=== PATIENT | female | born 1980 | race African-American/Black ===

== ENCOUNTER 2017-12-13 12:25 | Observation (INO) | payer MEDICAID ==
[~2017-12-13] VITALS: Ht 170.2 cm; Wt 103.0 kg
[2017-12-14] MEDS ORDERED: PNV1TABL76 MT (21:23)
[2017-12-14] MEDS ORDERED: PNV1TABL76 PO (21:23)
== END 2017-12-13 14:45 | disposition home or self-care (01) ==
LOC: L&D 12:25
PROVIDERS: ADMIT Obstetrics & Gynecology Obstetrics; ATTEND Obstetrics & Gynecology Obstetrics
DX: O36.63X0 Maternal care for excessive fetal growth, third trimester, not applicable or unspecified (principal); Z3A.39 39 weeks gestation of pregnancy
CPT/HCPCS: 76805; 76818; G0378

== ENCOUNTER 2017-12-14 18:55 | Observation (INO) | payer MEDICAID ==
[2017-12-14] MEDS ORDERED: PNV1TABL76 MT (21:23)
[2017-12-14] MEDS ORDERED: PNV1TABL76 PO (21:23)
== END 2017-12-14 21:35 | disposition home or self-care (01) ==
LOC: L&D 18:55
PROVIDERS: ADMIT Obstetrics & Gynecology Obstetrics; ATTEND Obstetrics & Gynecology Obstetrics
DX: Z34.93 Encounter for supervision of normal pregnancy, unspecified, third trimester (principal); Z3A.39 39 weeks gestation of pregnancy
CPT/HCPCS: 76815; 76818; 99281; G0378

== ENCOUNTER 2017-12-20 10:35 | Inpatient (IN) | payer MEDICAID ==
[~2017-12-20] VITALS: Ht 170.2 cm; Wt 103.0 kg
[~2017-12-20 10:35] MED LIST: PNV1TABL76 MT; PNV1TABL76 PO
[2017-12-20] MEDS ORDERED: CHOL100046 PO (11:01)
[2017-12-20] MEDS ORDERED: METHYLERGONOVINE MALEATE 0.2 MG/ML IM PRN (11:15)
[2017-12-20] MEDS ORDERED: CARBOPROST TROMETHAMINE 250 MCG/ML AMPUL IM PRN (11:15)
[2017-12-20] MEDS ORDERED: DIPHENHYDRAMINE 50MG/ML VIAL IV PRN (11:15)
[2017-12-20] MEDS ORDERED: NALOXONE HCL 0.4 MG/ML 1ML VIAL IV PRN (11:15)
[2017-12-20] MEDS ORDERED: CITRIC ACID/SODIUM CITRATE SOLN 30ML UDC PO NR (11:15)
[2017-12-20] MEDS ORDERED: BUTORPHANOL TARTRATE 2 MG/ML VIAL IV PRN (11:15)
[2017-12-20] MEDS ORDERED: FENTANYL CITRATE/PF 50MCG/ML 2ML VIAL ONE (11:24)
[2017-12-20] MEDS ORDERED: MORPHINE SULFATE/PF 1MG/ML 10ML AMP ONE (11:25)
[2017-12-20] MEDS: LACTATED RINGERS 1,000 ML IV SCH ×2 (11:26→12:09)
[2017-12-20 11:34] LABS: BASOPHILS % 0.5 % (0.0-2.0); EOSINOPHILS % 0.7 % (0.0-5.0); HEMATOCRIT. 39.6 % (36.0-48.0); HEMOGLOBIN. 13.3 g/dL (12.0-16.0); LYMPHOCYTES % 22.7 % (20.0-50.0); MEAN CORPUSCULAR VOLUME 80.3 fL (81.0-99.0); MEAN PLATELET VOLUME 7.9 fl (7.4-10.4); MONOCYTES % 8.3 % (2.0-8.0); NEUTROPHILS % 67.8 % (40.0-76.0); PLATELET 247 x1000/uL (130-400); RED BLOOD CELL COUNT 4.93 mill/uL (4.2-5.4); RED CELL DISTRIBUTION WIDTH 14.1 % (11.6-14.6)
[2017-12-20 11:36] LABS: CLARITY URINE CLEAR (CLEAR); COLOR URINE YELLOW (YELLOW); KETONES URINE NEGATIVE (NEGATIVE); LEUKOCYTE ESTERASE URINE 2+ (NEGATIVE); NITRITE URINE NEGATIVE (NEGATIVE); OCCULT BLOOD URINE NEGATIVE (NEGATIVE); PROTEIN URINE NEGATIVE (NEGATIVE); SPECIFIC GRAVITY URINE 1.013 (1.005-1.030); UROBILINOGEN URINE 0.2 E.U./dL (0.2-1.0)
[2017-12-20 11:43] LABS: PROTHROMBIN TIME 10.5 sec (9.4-11.6)
[2017-12-20] MEDS ORDERED: CEFAZOLIN SODIUM 1000MG/VIAL ONE (12:17)
[2017-12-20] MEDS ORDERED: EPHEDRINE SULFATE 50MG/ML VIAL ONE (12:17)
[2017-12-20] MEDS ORDERED: PHENYLEPHRINE HCL 10 MG/ML 1ML (IV VIAL) IV ONE (12:17)
[2017-12-20] MEDS ORDERED: OXYTOCIN 10 UNITS/ML 1ML ONE (12:17)
[2017-12-20] MEDS ORDERED: DIPHENHYDRAMINE 50MG/ML VIAL ONE (12:17)
[2017-12-20] MEDS ORDERED: ONDANSETRON HCL 4MG/2ML VIAL ONE (12:17)
[2017-12-20] MEDS ORDERED: GLYCOPYRROLATE 0.2 MG/ML 2ML VIAL ONE (12:17)
[2017-12-20 12:36] LABS: *AMPHETAMINES SCREEN URINE NEGATIVE (NEGATIVE); *BARBITURATES SCREEN URINE NEGATIVE (NEGATIVE); *BENZODIAZEPINES SCREEN URINE NEGATIVE (NEGATIVE); *COCAINE SCREEN URINE NEGATIVE (NEGATIVE); CANNABINOID URINE SCREEN NEGATIVE (NEGATIVE); METHADONE URINE SCREEN NEGATIVE (NEGATIVE); OPIATES URINE SCREEN NEGATIVE (NEGATIVE); PHENCYCLIDINE URINE SCREEN NEGATIVE (NEGATIVE)
[2017-12-20] MEDS ORDERED: METOCLOPRAMIDE HCL 10MG/2ML VIAL ONE (12:57)
[2017-12-20 13:02] LABS: HEPATITIS B SURFACE ANTIGEN NEGATIVE
[2017-12-20 13:22] LABS: RUBELLA IGG > 500.0 IU/mL (4.99-10)
[2017-12-20] MEDS: DEXT 5%/LR + PITOCIN 20UNITS/L 1,000 ML IV SCH ×2 (15:25→22:31)
[2017-12-20] MEDS ORDERED: ACETAMINOPHEN WITH CODEINE 300/30MG TABLET PO PRN ×2 (15:30)
[2017-12-20] MEDS ORDERED: BISACODYL 10MG SUPP PR PRN (15:30)
[2017-12-20] MEDS ORDERED: LANOLIN OINT 0.25 GM TUBE TOP PRN (15:30)
[2017-12-20] MEDS: ONDANSETRON HCL 4MG/2ML VIAL IV PRN ×2 (15:48→20:16)
[2017-12-20 16:30] VITALS: BP 109/55
[2017-12-20 17:19] VITALS: BP 103/62
[2017-12-20 19:30] VITALS: BP 116/61
[2017-12-20 23:45] VITALS: BP 108/55
[2017-12-21 03:50] VITALS: BP 97/55
[2017-12-21] MEDS: KETOROLAC 30MG/ML VIAL IV PRN ×2 (05:38→11:05)
[2017-12-21 06:05] LABS: HEMATOCRIT 35.7 % (36.0-48.0); HEMOGLOBIN 11.9 g/dL (12.0-16.0)
[2017-12-21] MEDS: PRENATAL VIT/FE FUMARATE/FA TABLET PO SCH (07:57)
[2017-12-21] MEDS: FERROUS SULFATE 325MG TABLET PO SCH (07:58)
[2017-12-21 08:00] VITALS: BP 116/71
[2017-12-21 13:10] VITALS: BP 114/68
[2017-12-21] MEDS: PROMETHAZINE/DEXTROMETHORPHAN 6.25-15MG/5ML BOTTLE 120ML PO PRN (14:35)
[2017-12-21 16:50] VITALS: BP 114/71
[2017-12-21] MEDS: IBUPROFEN 400MG TABLET PO PRN ×2 (17:16→23:37)
[2017-12-21 20:00] VITALS: BP 109/68
[2017-12-22] VITALS (7 sets, daily range): BP systolic 108–123; BP diastolic 63–77
[2017-12-22] MEDS: FERROUS SULFATE 325MG TABLET PO SCH (07:56)
[2017-12-22] MEDS: PRENATAL VIT/FE FUMARATE/FA TABLET PO SCH (07:56)
[2017-12-22] MEDS: IBUPROFEN 400MG TABLET PO PRN ×3 (07:56→21:16)
[2017-12-22] MEDS: PROMETHAZINE/DEXTROMETHORPHAN 6.25-15MG/5ML BOTTLE 120ML PO PRN ×2 (08:17→21:19)
[2017-12-22] MEDS ORDERED: INFLUENZA VIRUS VACCINE 0.5ML SYR IM ONE (20:00)
[2017-12-22] MEDS ORDERED: TETANUS, DIPHTHERIA, PERTUSSIS VAC/PF 0.5ML (>7YR OLD) IM ONE (20:00)
[2017-12-23 04:15] VITALS: BP 113/69
[2017-12-23] MEDS: IBUPROFEN 400MG TABLET PO PRN ×2 (06:03→12:54)
[2017-12-23 07:47] VITALS: BP 112/78
[2017-12-23] MEDS: PRENATAL VIT/FE FUMARATE/FA TABLET PO SCH (07:59)
[2017-12-23] MEDS: FERROUS SULFATE 325MG TABLET PO SCH ×2 (07:59→12:54)
[2017-12-23] MEDS: PROMETHAZINE/DEXTROMETHORPHAN 6.25-15MG/5ML BOTTLE 120ML PO PRN ×2 (08:01→16:01)
== END 2017-12-23 16:24 | disposition home or self-care (01) | DRG 540 ==
LOC: OBSVTOIN 10:35 → L&D 10:35 → 7EST PP/OB 15:58
PROVIDERS: ADMIT Obstetrics & Gynecology Obstetrics; ATTEND Obstetrics & Gynecology Obstetrics
PROC: 10D00Z1 Extraction of Products of Conception, Low, Open Approach (ICD-10-PCS; principal; 2017-12-20 13:23)
DX: O34.219 Maternal care for unspecified type scar from previous cesarean delivery (principal); O48.0 Post-term pregnancy; Z37.0 Single live birth; O36.60X0 Maternal care for excessive fetal growth, unspecified trimester, not applicable or unspecified; O75.89 Other specified complications of labor and delivery; O77.0 Labor and delivery complicated by meconium in amniotic fluid; Z3A.40 40 weeks gestation of pregnancy
CPT/HCPCS: 36415; 80305; 81001; 85014; 85018; 85025; 85610; 85730; 86592; 86703; 86762; 86850; 86900; 87340; 88307; 90686; 90715; G0378; J0171; J0690; J1200; J1885; J2274; J2370; J2405; J2590; J2765; J3010; J3490; J7120